=== PATIENT | male | born 1935 | race Two or more races ===

== ENCOUNTER → 2017-06-07 | Outpatient (CLI) | payer OTHER ==
[2017-06-07 17:20] LABS: Allen Test Yes; Base Excess 0.3 mmol/L (-2.0-2.0); Blood 02Sat 93.7 % (96-100); Blood COHb 0.3 % (0.5-1.5); Blood MetHb 0.4 % (0.0-1.5); HCO3 24.6 mmol/L (22-26.0); HHb 6.3 % (0.0-5.0); MODE ROOM AIR; PO2 70.9 mmHg (80.0-100.0); PO2(T) 70.9 mmHg (80.0-100.0); Sample Type Arterial; pH 7.418 (7.350-7.450)
== END | disposition home or self-care (01) ==
LOC: RT 16:54
PROVIDERS: ATTEND Internal Medicine Pulmonary Disease
DX: J84.10 Pulmonary fibrosis, unspecified (principal)
CPT/HCPCS: 36600; 82805

== ENCOUNTER 2019-11-10 11:52 | Emergency (ER) | payer BC, OTHER ==
[~2019-11-10] VITALS: Ht 165.1 cm; Wt 63.5 kg
[2019-11-10 15:09] LABS: Basophils # (auto) 0.1 10 ^3/uL (0-0.2); Basophils % (auto) 0.6 % (0.0-2.0); Eosinophils # (auto) 0.1 10 ^3/uL (0-0.8); Eosinophils % (auto) 0.6 % (0.0-7.0); Hematocrit 41.9 % (41.0-53.0); Hemoglobin 14.6 g/dL (13.5-17.5); Lymphocytes # (auto) 1.7 10 ^3/uL (0.4-5.4); Lymphocytes % (auto) 17.7 % (10.0-50.0); Mean Corpuscular Hemoglobin 32.6 pg (28.0-32.0); Mean Corpuscular Hgb Conc. 34.8 g/dL (32.0-36.0); Mean Corpuscular Volume 93.7 fL (80.0-100.0); Monocytes # (auto) 0.6 10 ^3/uL (0-1.3); Neutrophils # (auto) 7.3 10 ^3/uL (1.6-8.6); Neutrophils % (auto) 75.1 % (37.0-80.0); Nucleated Red Blood Cells % 0.1 %; Platelet Count (auto) 186 10^3/uL (140-450); Red Blood Cells 4.48 10^6/uL (4.5-5.90); Red Cell Distribution Width 13.4 % (11.8-14.3); White Blood Cell 9.7 10^3/uL (4.4-10.8)
[2019-11-10 15:28] LABS: INR 1.29 (0.9-1.15); Partial Thromboplastin Time 40.1 sec (23.64-32.05)
[2019-11-10 15:29] LABS: Albumin 3.6 g/dL (3.4-5.0); Calcium 8.9 mg/dL (8.5-10.1); Magnesium 1.9 mg/dL (1.6-2.6)
[2019-11-10 15:31] LABS: BUN/Creatinine Ratio 46.3
[2019-11-10 15:38] LABS: Bilirubin, Total 0.8 mg/dL (0.2-1.0); Total Protein 7.6 g/dL (6.4-8.2)
[2019-11-10 16:31] VITALS: BP 134/80
== END 2019-11-10 16:53 | disposition home or self-care (01) ==
LOC: ER 11:52 → EDBD 11:52 → ER 16:53
DX: R04.0 Epistaxis (principal); I50.9 Heart failure, unspecified; E11.9 Type 2 diabetes mellitus without complications; K21.9 Gastro-esophageal reflux disease without esophagitis; Z95.0 Presence of cardiac pacemaker
CPT/HCPCS: 30901; 36415; 80053; 83735; 85025; 85610; 85730

== ENCOUNTER → 2019-11-15 | Emergency (ER) | payer BC ==
[~2019-11-15] VITALS: Ht 167.6 cm; Wt 54.4 kg
[~2019-11-15] MED LIST: NEOMYCIN-BACITRACIN-POLYM UNITDOSE PKG TOP OINT TOP ONE
[2019-11-15 08:25] LABS: Basophils # (auto) 0.1 10 ^3/uL (0-0.2); Basophils % (auto) 0.8 % (0.0-2.0); Eosinophils # (auto) 0.2 10 ^3/uL (0-0.8); Eosinophils % (auto) 2.5 % (0.0-7.0); Hematocrit 38.8 % (41.0-53.0); Hemoglobin 13.1 g/dL (13.5-17.5); Lymphocytes # (auto) 1.5 10 ^3/uL (0.4-5.4); Lymphocytes % (auto) 17.9 % (10.0-50.0); Mean Corpuscular Hemoglobin 31.8 pg (28.0-32.0); Mean Corpuscular Hgb Conc. 33.8 g/dL (32.0-36.0); Mean Corpuscular Volume 94.1 fL (80.0-100.0); Monocytes # (auto) 0.7 10 ^3/uL (0-1.3); Monocytes % (auto) 8.4 % (0.0-12.0); Neutrophils % (auto) 70.4 % (37.0-80.0); Nucleated Red Blood Cells % 0.1 %; Platelet Count (auto) 180 10^3/uL (140-450); Red Blood Cells 4.13 10^6/uL (4.5-5.90); Red Cell Distribution Width 13.5 % (11.8-14.3); White Blood Cell 8.4 10^3/uL (4.4-10.8)
[2019-11-15 08:32] LABS: INR 1.09 (0.9-1.15); Partial Thromboplastin Time 35.1 sec (23.64-32.05)
[2019-11-15 08:39] LABS: Albumin 3.4 g/dL (3.4-5.0); Calcium 8.4 mg/dL (8.5-10.1); Potassium 3.9 mmol/L (3.5-5.1)
[2019-11-15 08:41] LABS: BUN/Creatinine Ratio 26.2
[2019-11-15 08:44] LABS: Bilirubin, Total 0.5 mg/dL (0.2-1.0); Total Protein 7.2 g/dL (6.4-8.2)
[2019-11-15 15:20] VITALS: BP 133/87
== END | disposition home or self-care (01) ==
LOC: EDUNIT# 06:44 → EDBD 06:50 → ER 06:53
DX: R04.0 Epistaxis (principal); I11.0 Hypertensive heart disease with heart failure; I50.9 Heart failure, unspecified; E11.9 Type 2 diabetes mellitus without complications; K21.9 Gastro-esophageal reflux disease without esophagitis; Z95.0 Presence of cardiac pacemaker
CPT/HCPCS: 30901; 36415; 80053; 85025; 85610; 85730

== ENCOUNTER → 2019-11-16 | Emergency (ER) | payer BC ==
[~2019-11-16] VITALS: Ht 165.1 cm; Wt 61.2 kg
[~2019-11-16] MED LIST changes: +LIDOCAINE HCL 2% TOP JELLY 5ML TOP ONE; -NEOMYCIN-BACITRACIN-POLYM UNITDOSE PKG TOP OINT TOP ONE
[2019-11-16 12:00] VITALS: BP 122/62
== END | disposition home or self-care (01) ==
LOC: EDUNIT# 08:53 → ER 09:01 → EDBD 09:01
DX: R04.0 Epistaxis (principal); I11.0 Hypertensive heart disease with heart failure; I50.9 Heart failure, unspecified; E11.9 Type 2 diabetes mellitus without complications; K21.9 Gastro-esophageal reflux disease without esophagitis
CPT/HCPCS: 30905